=== PATIENT | female | born 1935 | race Caucasian/White ===

== ENCOUNTER 2017-12-24 07:44 | Emergency (ER) | payer MEDICARE, BC ==
[2017-12-24] MEDS ORDERED: Diphtheria,Pertussis(Acell),Tetanus Vaccine 0.5 ML SDV IM ONE (08:48)
--- NOTE | 2017-12-24 08:53 | EDM.PDOC ---
ED HPI GENERAL MEDICAL PROBLEM - General Chief Complaint: Wound Recheck Stated Complaint: DOG SCRATCH RT ARM/ON BLOOD THINNERS Time Seen by Provider: 12/24/17 08:43 Source of Information: Reports: Patient, RN Notes Reviewed History Limitations: Reports: No Limitations - History of Present Illness INITIAL COMMENTS - FREE TEXT/NARRATIVE: 82-year-old female presents emergency department today with complaint of dog scratch to her right arm she does take blood thinners and unfortunately she's developed a hematoma on her right forearm the dog did not bite her but she does have some open skin skin tear and bruising over that arm she is unsure of her tetanus Right Arm Pain Score (Numeric/FACES): 2 Past Medical History HEENT History: Reports: Cataract, Impaired Vision Cardiovascular History: Reports: CAD, Pacemaker Gastrointestinal History: Reports: Hemorrhoids, Pancreatitis Musculoskeletal History: Reports: Back Pain, Chronic Endocrine/Metabolic History: Reports: Hypothyroidism - Past Surgical History HEENT Surgical History: Reports: Cataract Surgery, Tonsillectomy Cardiovascular Surgical History: Reports: Coronary Artery Bypass, Pacer GI Surgical History: Reports: Appendectomy, Cholecystectomy Female Surgical History: Reports: Other (See Below) Other Female Surgeries/Procedures: one kidney removed Social & Family History - Tobacco Use Smoking Status *Q: Never Smoker - Recreational Drug Use Recreational Drug Use: No ED ROS GENERAL - Review of Systems Review Of Systems: See Below Constitutional: Reports: No Symptoms Musculoskeletal: Reports: No Symptoms Skin: Reports: Wound ED EXAM, SKIN/RASH Exam: See Below Text/Narrative:: Examination the right arm she has full range of motion all digits radial pulses +2 she does have a small hematoma approximately 3 cm x 1 cm there is a superficial skin tear no active bleeding Exam Limited By: No Limitations General Appearance: Alert, WD/WN, No Apparent Distress Course - Vital Signs Last Recorded V/S: Last Vital Signs Temp 99.0 F 12/24/17 08:26 Pulse 85 12/24/17 08:26 Resp 16 12/24/17 08:26 BP 173/74 H 12/24/17 08:26 Pulse Ox 96 12/24/17 08:26 - Orders/Labs/Meds Orders: Active Orders 24 hr Category Date Time Status Vaccines to be Administered [RC] PER UNIT ROUTINE Care 12/24/17 08:48 Ordered Meds: Medications Discontinued Medications Generic Name Dose Route Start Last Admin Trade Name Freq PRN Reason Stop Dose Admin Diphtheria/Tetanus/Acell Pertussis 0.5 ml 12/24/17 08:48 Adacel IM 12/24/17 08:49 .ONCE ONE Departure - Departure Time of Disposition: 08:52 Disposition: Home, Self-Care 01 Condition: Good Clinical Impression: Skin tear of right forearm without complication Qualifiers: Encounter type: initial encounter Qualified Code(s): S51.811A - Laceration without foreign body of right forearm, initial encounter - Discharge Information Referrals: Larry Giron MD [Primary Care Provider] - Additional Instructions: Take full course of antibiotics, Please followup with your primary care provider in 5-7 days if not better, please call return to the emergency department with worsening of symptoms. - My Orders Last 24 Hours: My Active Orders 12/24/17 08:48 Vaccines to be Administered [RC] PER UNIT ROUTINE - Assessment/Plan Last 24 Hours: My Active Orders 12/24/17 08:48 Vaccines to be Administered [RC] PER UNIT ROUTINE Plan: Assessment Acuity = acute Site and laterality = superficial skin tear with underlying hematoma right forearm Etiology = secondary to trauma with a dog Manifestations = none Location of injury = Home Lab values = none Plan Prophylactically placed on Augmentin 875 by mouth twice a day 10 days follow- up with primary care in 5-7 days if no improvement, compression dressing applied This note was dictated using [email or web address] voice recognition software please call with any questions on syntax or winsome.
== END 2017-12-24 09:35 | disposition home or self-care (01) ==
LOC: JP.ED 07:44
DX: S51.811A Laceration without foreign body of right forearm, initial encounter (principal); W54.0XXA Bitten by dog, initial encounter; Z23 Encounter for immunization
CPT/HCPCS: 90471; 90715; 99283-25